=== PATIENT | female | born 1935 | race Caucasian/White ===

== ENCOUNTER 2019-01-27 06:09 | Day surgery (SDC) | payer OTHER ==
[2019-01-09 17:57] VITALS: BMI 28.1
[2019-01-27] MEDS ORDERED: TROPICAMIDE 1% OPHTH SOLN 15 ML BOTTLE ONE (07:05)
[2019-01-27] MEDS ORDERED: BACITRACIN/POLYMYXIN OPH OINT 3.5 GM TUBE ONE (07:10)
[2019-01-27] MEDS ORDERED: BETAXOLOL HCL 0.25% OPHTHALMIC 10 ML DROPSBTL ONE (07:10)
[2019-01-27] MEDS ORDERED: EPI-SHUGARCAINE (EPINEPHRINE 0.025% & LIDOCAINE-PF 0.75%) 4ML ONE (07:10)
[2019-01-27] MEDS ORDERED: TETRACAINE 0.5% OPHTH SOLN 2 ML BOTTLE ONE (07:11)
[2019-01-27] MEDS ORDERED: POVIDONE-IODINE 5% OPHTHALMIC PREP 30 ML SOLUTION ONE (07:11)
[2019-01-27] MEDS ORDERED: EPINEPHrine/PF 1 MG/1 ML (1:1,000) AMPULE ONE (07:11)
[2019-01-27] MEDS ORDERED: NEO/POLYMYX B SULF/DEXAMETH OPHTHALMIC 5ML BOTTLE ONE (07:11)
[2019-01-27] MEDS ORDERED: ACETYLCHOLINE 1:100 INTRA-OCUL 20 MG/2 ML KIT ONE (07:11)
[2019-01-27] MEDS: PHENYLEPHRINE 2.5% OPHTH SOLN 15 ML BOTTLE OD SCH ×5 (07:20→07:40)
[2019-01-27] MEDS: KETOROLAC TROMETHAMINE 0.5% EYE DROP 1 DROP DROPS OD SCH ×5 (07:20→07:40)
[2019-01-27] MEDS: CYCLOPENTOLATE HCL 1% OPHTH SOLN 2 ML BOTTLE OD SCH ×5 (07:20→07:40)
[2019-01-27] MEDS: TROPICAMIDE 1% OPHTH SOLN 15 ML BOTTLE OD SCH ×5 (07:20→07:40)
[2019-01-27] MEDS: GENTAMICIN SULFATE 0.3% OPHTHALMIC (EYE DROPS) 5ML BOTTLE OD SCH ×5 (07:20→07:40)
[2019-01-27] MEDS ORDERED: MIDAZOLAM HCL 2 MG/2 ML SINGLE DOSE VIAL ONE (08:20)
[2019-01-27] MEDS ORDERED: ACETAMINOPHEN 325 MG TABLET (FP) PO PRN (09:17)
--- NOTE | 2019-01-27 09:37 | OP ---
DATE OF OPERATION: 01/27/2019 SEX: Female. PREOPERATIVE DIAGNOSIS: Cataract, right eye. POSTOPERATIVE DIAGNOSIS: Cataract, right eye. PROCEDURE: Cataract extraction via phacoemulsification with insertion of posterior chamber lens implant, right eye. SURGEON: Keven Ernandez MD MULTI OPERATION MACHINE OPERATOR: Rena Vargas MD ANESTHESIA: Topical with sedation. ESTIMATED BLOOD LOSS: Less than 1 mL. COMPLICATIONS: None. SPECIMENS: None. DESCRIPTION OF PROCEDURE: The patient was identified in the holding area. After all risks, benefits, and alternatives were explained to the patient, informed consent was obtained. The right eye was marked with a marking pen. The patient then entered the operating room on an eye stretcher. After a formal timeout was performed, topical tetracaine eye drops were instilled onto the right eye. The right eye was then prepped and draped in the usual sterile fashion. An eyelid speculum was placed beneath the eyelids of the right eye. A superotemporal paracentesis incision was created using a 15-degree blade. Topical preservative-free epinephrine and preservative-free lidocaine were then injected into the anterior chamber. Viscoelastic was injected into the anterior chamber. A 2.4-mm keratome blade was then used to make an inferotemporal incision. A 360-degree, continuous curvilinear capsulorrhexis was then created using bent cystotome and Utrata forceps. Hydrodissection was performed using balanced saline solution on a cannula. Phacoemulsification was introduced to disassemble and remove the nucleus in its entirety. Irrigation/aspiration was then used to remove any remaining cortical material from the eye. Capsular bag was reformed using viscoelastic. An Sandro model [id number] with a power of 22.0 diopters, serial number [id number] was inspected and found to be defect free and injected into the capsular bag. Irrigation/aspiration was then used to remove any remaining viscoelastic from the eye. The anterior chamber was reformed using balanced saline solution. Intracameral injections of Miochol and Miostat were then administered, and the pupil came down and was round. All wounds were hydrated with balanced saline solution and noted to be watertight. There was a red reflex present. The eye had an adequate pressure. The lens was perfectly centered in the capsular bag, and the anterior chamber was deep. Topical antibiotic eye drops and ointment were then administered to the right eye. The right eye was shielded after the eyelid speculum was removed from the right eye. The patient tolerated the procedure well, left the operating room in stable condition to follow up in the eye clinic tomorrow morning at 9:00. KEVEN ERNANDEZ M.D. E[facility]/[id number]
[2019-01-27 12:46] VITALS: TEMP 97.5
[2019-01-27 12:48] VITALS: BP 140/79; PULSE 82
== END 2019-01-27 10:00 | disposition home or self-care (01) ==
LOC: FASU 06:09
PROVIDERS: ATTEND Ophthalmology
PROC: 08RJ3JZ Replacement of Right Lens with Synthetic Substitute, Percutaneous Approach (ICD-10-PCS; principal; 2019-01-27 08:35)
DX: H26.9 Unspecified cataract (principal)

== ENCOUNTER 2019-08-18 05:49 | Day surgery (SDC) | payer OTHER ==
[2019-08-12 16:07] VITALS: BMI 27.8
[2019-08-18] MEDS ORDERED: TROPICAMIDE 1% OPHTH SOLN 15 ML BOTTLE ONE (06:23)
[2019-08-18] MEDS ORDERED: CYCLOPENTOLATE HCL 1% OPHTH SOLN 2 ML BOTTLE ONE (06:23)
[2019-08-18] MEDS ORDERED: OFLOXACIN 0.3% OPHTHALMIC SOLUTION 5 ML BOTTLE ONE (06:23)
[2019-08-18] MEDS ORDERED: KETOROLAC TROMETHAMINE 0.5% EYE DROP 1 DROP DROPS ONE (06:23)
[2019-08-18] MEDS ORDERED: PHENYLEPHRINE 2.5% OPHTH SOLN 15 ML BOTTLE ONE (06:24)
[2019-08-18] MEDS: TROPICAMIDE 1% OPHTH SOLN 15 ML BOTTLE OS SCH ×5 (06:30→06:50)
[2019-08-18] MEDS: CYCLOPENTOLATE HCL 1% OPHTH SOLN 2 ML BOTTLE OS SCH ×5 (06:30→06:50)
[2019-08-18] MEDS: KETOROLAC TROMETHAMINE 0.5% EYE DROP 1 DROP DROPS OS SCH ×5 (06:30→06:50)
[2019-08-18] MEDS: PHENYLEPHRINE 2.5% OPHTH SOLN 15 ML BOTTLE OS SCH ×5 (06:30→06:50)
[2019-08-18] MEDS: OFLOXACIN 0.3% OPHTHALMIC SOLUTION 5 ML BOTTLE OS SCH ×5 (06:30→06:50)
[2019-08-18] MEDS ORDERED: BACITRACIN/POLYMYXIN OPH OINT 3.5 GM TUBE ONE (07:07)
[2019-08-18] MEDS ORDERED: ACETYLCHOLINE 1:100 INTRA-OCUL 20 MG/2 ML KIT ONE (07:08)
[2019-08-18] MEDS ORDERED: POVIDONE-IODINE 5% OPHTHALMIC PREP 30 ML SOLUTION ONE (07:08)
[2019-08-18] MEDS ORDERED: EPI-SHUGARCAINE (EPINEPHRINE 0.025% & LIDOCAINE-PF 0.75%) 4ML ONE (07:08)
[2019-08-18] MEDS ORDERED: NEO/POLYMYX B SULF/DEXAMETH OPHTHALMIC 5ML BOTTLE ONE (07:08)
[2019-08-18] MEDS ORDERED: BETAXOLOL HCL 0.25% OPHTHALMIC 10 ML DROPSBTL ONE (07:08)
[2019-08-18] MEDS ORDERED: TETRACAINE 0.5% OPHTH SOLN 2 ML BOTTLE ONE (07:08)
[2019-08-18] MEDS ORDERED: EPINEPHrine/PF 1 MG/1 ML (1:1,000) AMPULE ONE (07:09)
[2019-08-18] MEDS ORDERED: MIDAZOLAM HCL 2 MG/2 ML SINGLE DOSE VIAL ONE (07:40)
[2019-08-18] MEDS ORDERED: DEXAMETHASONE SOD PHOSPHATE 4 MG/1 ML VIAL ONE (07:40)
[2019-08-18] MEDS ORDERED: ONDANSETRON 4 MG/2 ML VIAL ONE (07:40)
[2019-08-18] MEDS ORDERED: ACETAMINOPHEN 325 MG TABLET (FP) PO PRN (08:28)
[2019-08-18 08:38] VITALS: TEMP 98.2
[2019-08-18 09:03] VITALS: BP 128/77; PULSE 16
--- NOTE | 2019-08-18 11:00 | OP ---
DATE OF OPERATION: 08/18/2019 PREOPERATIVE DIAGNOSIS: Cataract, left eye. POSTOPERATIVE DIAGNOSIS: Cataract, left eye. PROCEDURE: Cataract extraction via phacoemulsification with insertion of posterior chamber lens implant, left eye, Toric lens. SURGEON: Keven Ernandez MD LAUNDRETTE OWNER: Rena Vargas MD ANESTHESIA: Topical with sedation. ESTIMATED BLOOD LOSS: Less than 1 mL. SPECIMENS: None. COMPLICATIONS: None. DESCRIPTION OF PROCEDURE: The patient was identified in the holding area. After all risks, benefits, and alternatives are explained to patient, informed consent was obtained. The left eye was marked with a marking pen. The patient then entered the operating room on an eye stretcher. After formal time-out was performed, topical tetracaine eye drops were instilled onto the left eye. The patient was then asked to sit up and to look straight ahead, and the cardinal axis of astigmatism were marked onto the left cornea using a Toric bubble marker and a Toric marking pen. The patient was then asked to lie back down, and the left eye was prepped and draped in the usual sterile fashion. An eyelid speculum was placed beneath the eyelid of the left eye. Then the axis of astigmatism was marked onto the left cornea, which was noted to be 155 degrees. Then, an inferotemporal paracentesis incision was created using a 15-degree blade. Topical preservative-free lidocaine and preservative-free epinephrine were then injected into the anterior chamber. Viscoelastic was then injected into the anterior chamber. A 2.4-mm keratome blade was then used to make a superotemporal incision. A 360-degree continuous curvilinear capsulorrhexis was then created using bent cystotome and Utrata forceps. Hydrodissection was performed using balanced saline solution on a cannula. Phacoemulsification was introduced to disassemble and remove the nucleus in its entirety. Irrigation/aspiration was then used to remove any remaining cortical material from the eye. The capsular bag was reformed using viscoelastic. An Sandro Model [id number] with a power of 23.5 diopter serial number [id number] was inspected and found to be defect free and injected into the capsular bag. Irrigation/aspiration was then used to remove any remaining viscoelastic, and the intraocular lens was rotated so that the axis of astigmatism on the optic matched the axis of astigmatism on the cornea, which was noted to be 155 degrees. Then intracameral injection of Miochol was administered, and the pupil came down and was round. All wounds were hydrated with balanced saline solution. Noted to be watertight. The anterior chamber was deep. The lens perfectly centered in the capsular bag. The eye had a red reflex, and the eye had an adequate pressure. Topical antibiotic eyedrops and ointment were then administered to the left eye. The eyelid speculum was removed from the left eye. The left eye was shielded. The patient tolerated the procedure well and left the operating room in stable condition to follow up in the eye clinic tomorrow morning at 10 o'clock. KEVEN ERNANDEZ M.D. [facility]/[id number]
== END 2019-08-18 09:07 | disposition home or self-care (01) ==
LOC: FASU 05:49
PROVIDERS: ATTEND Ophthalmology
PROC: 08RK3JZ Replacement of Left Lens with Synthetic Substitute, Percutaneous Approach (ICD-10-PCS; principal; 2019-08-18 07:30)
DX: H26.9 Unspecified cataract (principal)